=== PATIENT | male | born 1980 | race Caucasian/White ===

== ENCOUNTER 2017-01-01 09:09 | Emergency (ER) | payer OTHER ==
[2017-01-01] MEDS ORDERED: NS 1,000 ML IV ONE ×2 (09:24→10:00)
--- NOTE | 2017-01-01 09:26 | EDPHY ---
H & P Time Seen by Provider: 01/01/17 09:12 HPI/ROS: Chief Complaint: Fatigue, diarrhea, weakness HPI: 36-year-old type 2 diabetic presenting with 3 days of fatigue, several episodes of diarrhea. Subjective fevers and chills. Generalize malaise. Has had some nausea, no vomiting. Mild headache. He is a type 2 diabetic. Normally takes Actos, Lantus and metformin. Did not take his 25 units of Lantus this morning. His blood sugars have been running in the 300. No abdominal pain. No chest pain. No cough. No neck pain or stiffness. No hearing or vision changes. 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 ROS: 10 point Review of Systems is negative except as noted in the HPI. PMH: Type 2 diabetes, borderline hypertension Medications: Actos, Lantus, metformin Allergies: No known drug allergies Social History: Positive smoking, positive alcohol, no recreational drug use Family History: non-contributory Physical Exam: Gen: Awake, Alert, No Distress HEENT: Nose: no rhinorrhea Eyes: PERRLA, EOMI Mouth: Dry mucosa Neck: Supple, no JVD Chest: nontender, lungs clear to auscultation Heart: S1, S2 normal, no murmur Abd: Soft, non-tender, no guarding Back: no CVA tenderness, no midline tenderness Ext: no edema, non-tender Skin: no rash Neuro: CN II-XII intact, Sensation grossly intact, Strength 5/5 in bilateral upper and lower extremities - Personal History Tetanus Vaccine Date: within 10 years - Medical/Surgical History Hx Asthma: No Hx Chronic Respiratory Disease: No Hx Diabetes: Yes Hx Cardiac Disease: No Hx Renal Disease: No Hx Cirrhosis: No Hx Alcoholism: No Hx HIV/AIDS: No Hx Splenectomy or Spleen Trauma: No Other PMH: DM type I, HTN, high cholesterol - Social History Smoking Status: Never smoked Constitutional: Initial Vital Signs Temperature (C) 36.6 C 01/01/17 09:29 Heart Rate 91 01/01/17 09:29 Respiratory Rate 16 01/01/17 09:29 Blood Pressure 140/96 H 01/01/17 09:29 O2 Sat (%) 95 01/01/17 09:29 O2 Delivery Mode Room Air Allergies/Adverse Reactions: No Known Allergies Allergy (Verified 01/01/17 09:34) Home Medications: Medication Instructions Recorded Actos 01/01/17 Lantus Insulin 01/01/17 Metformin HCl 01/01/17 Medical Decision Making ED Course/Re-evaluation: Patient's blood sugars 250 which is not too bad for him today. Remainder is blood work is unremarkable. He is tolerating p. o.. He has gotten fluids here. He has a soft benign abdomen. Will be discharged with follow up with primary care physician. Return for worsening symptoms. Symptoms consistent with a viral gastroenteritis. - Data Points Laboratory Results: Laboratory Results 01/01/17 09:22 01/01/17 09:22 01/01/17 01/01/17 09:22 09:22 WBC 6.59 10^3/uL 10^3/uL (3.80-9.50) RBC 5.42 10^6/uL 10^6/uL (4.40-6.38) Hgb 17.4 g/dL g/dL (13.7-17.5) Hct 47.6 % % (40.0-51.0) MCV 87.8 fL fL (81.5-99.8) MCH 32.1 pg pg (27.9-34.1) MCHC 36.6 g/dL g/dL (32.4-36.7) RDW 11.7 % % (11.5-15.2) Plt Count 253 10^3/uL 10^3/uL (150-400) MPV 10.1 fL fL (8.7-11.7) Neut % (Auto) 53.8 % % (39.3-74.2) Lymph % (Auto) 35.7 % % (15.0-45.0) [place] % (Auto) 6.7 % % (4.5-13.0) Eos % (Auto) 2.7 % % (0.6-7.6) Baso % (Auto) 0.8 % % (0.3-1.7) Nucleat RBC Rel Count 0.0 % % (0.0-0.2) Absolute Neuts (auto) 3.55 10^3/uL 10^3/uL (1.70-6.50) Absolute Lymphs (auto) 2.35 10^3/uL 10^3/uL (1.00-3.00) Absolute Monos (auto) 0.44 10^3/uL 10^3/uL (0.30-0.80) Absolute Eos (auto) 0.18 10^3/uL 10^3/uL (0.03-0.40) Absolute Basos (auto) 0.05 10^3/uL 10^3/uL (0.02-0.10) Absolute Nucleated RBC 0.00 10^3/uL 10^3/uL (0-0.01) Immature Gran % 0.3 % % (0.0-1.1) Immature Gran # 0.02 10^3/uL 10^3/uL (0.00-0.10) Sodium 137 mEq/L mEq/L (134-144) Potassium 4.1 mEq/L mEq/L (3.5-5.2) Chloride 103 mEq/L mEq/L (97-110) Carbon Dioxide 21 mEq/l L mEq/l (22-31) Anion Gap 13 mEq/L mEq/L (8-16) BUN 12 mg/dL mg/dL (7-23) Creatinine 0.5 mg/dL L mg/dL (0.7-1.3) Estimated GFR > 60 Glucose 254 mg/dL H mg/dL (70-100) Calcium 9.3 mg/dL mg/dL (8.5-10.4) Medications Given: Discontinued Medications Sodium Chloride (Ns) 1,000 mls @ 0 mls/hr IV ONCE ONE PRN Reason: Wide Open Stop: 01/01/17 09:25 Last Admin: 01/01/17 09:32 Dose: 1,000 mls Sodium Chloride (Ns) 1,000 mls @ 0 mls/hr IV ONCE ONE PRN Reason: Wide Open Stop: 01/01/17 10:01 Last Admin: 01/01/17 10:02 Dose: 1,000 mls Insulin Glargine (Lantus Syringe) 25 units SC ONCE ONE Stop: 01/01/17 09:31 Last Admin: 01/01/17 09:41 Dose: Not Given Departure - Departure Disposition: Home, Routine, Self-Care Clinical Impression: Acute gastroenteritis Condition: Good Instructions: Gastroenteritis (ED) Additional Instructions: You may alternate ibuprofen with acetaminophen for fevers, chills, aches or pains. Drink plenty of fluids. Continue taking your normal diabetes medications and check your blood sugars frequently. Follow up with primary care physician in 2-3 days if symptoms are not improving. Referrals: Tony Marmolejo MD [Primary Care Provider] - As per Instructions
[2017-01-01] MEDS ORDERED: INSULIN GLARGINE 100 UNITS/ML SYRINGE SC ONE (09:30)
[2017-01-01 09:31] VITALS: RESP 16
[2017-01-01 09:31] LABS: % IMMATURE GRANULYOCYTES 0.3 % (0.0-1.1); ABSOLUTE IMMATURE GRANULOCYTES 0.02 10^3/uL (0.00-0.10); ADD DIFF? NO; ADD MORPH? NO; ADD SCAN? NO; ATYPICAL LYMPHOCYTE FLAG 10 (0-99); FRAGMENT RBC FLAG 0 (0-99); HEMATOCRIT 47.6 % (40.0-51.0); HEMOGLOBIN 17.4 g/dL (13.7-17.5); LEFT SHIFT FLG 0 (0-99); LIPEMIA HEMOLYSIS FLAG 90 (0-99); MEAN CELL HEMOGLOBIN 32.1 pg (27.9-34.1); MEAN CELL HEMOGLOBIN CONCENTR. 36.6 g/dL (32.4-36.7); MEAN CELL VOLUME 87.8 fL (81.5-99.8); MEAN PLATELET VOLUME 10.1 fL (8.7-11.7); PLATELET CLUMPS FLAG 0 (0-99); PLATELET COUNT 253 10^3/uL (150-400); RED BLOOD CELL COUNT 5.42 10^6/uL (4.40-6.38); RED CELL DISTRIBUTION WIDTH 11.7 % (11.5-15.2)
[2017-01-01 09:47] LABS: ANION GAP 13 mEq/L (8-16); CALCIUM 9.3 mg/dL (8.5-10.4); CARBON DIOXIDE 21 mEq/l (22-31); CHLORIDE 103 mEq/L (97-110); CREATININE 0.5 mg/dL (0.7-1.3); GLOMERULAR FILTRATION RATE > 60; GLUCOSE 254 mg/dL (70-100); POTASSIUM 4.1 mEq/L (3.5-5.2); SODIUM 137 mEq/L (134-144)
[2017-01-01 11:04] VITALS: BP 141/98; PULSE 86; TEMP 98.2; O2SAT 94
== END 2017-01-01 11:04 | disposition home or self-care (01) ==
LOC: CED 09:09
DX: K52.9 Noninfective gastroenteritis and colitis, unspecified (principal); E11.9 Type 2 diabetes mellitus without complications; F17.200 Nicotine dependence, unspecified, uncomplicated; Z79.4 Long term (current) use of insulin; Z79.84 Long term (current) use of oral hypoglycemic drugs
CPT/HCPCS: 80048-PO; 85025-PO; J1815